=== PATIENT | female | born 1950 | race Caucasian/White ===

== ENCOUNTER 2021-05-21 14:33 | Inpatient (IN) | payer OTHER, MEDICAID ==
[~2021-05-21] VITALS: Ht 157.5 cm; Wt 73.7 kg
[2021-05-21 16:02] VITALS: BP 126/53
[2021-05-21] MEDS ORDERED: NORVASC5 MG PO (16:06)
[2021-05-21] MEDS ORDERED: ASPIRIN ADULT L81 M2 PO (16:08)
[2021-05-21] MEDS ORDERED: ATORVASTATIN CA20 M1 PO (16:10)
[2021-05-21] MEDS ORDERED: BUSPIRONE15 MG PO (16:12)
[2021-05-21] MEDS ORDERED: CELEXA20 MG PO (16:13)
[2021-05-21] MEDS ORDERED: DULCOLAX STOOL100 M1 PO (16:15)
[2021-05-21] MEDS ORDERED: HALDOL5 MG/1 ML IM (16:17)
[2021-05-21] MEDS ORDERED: LISINOPRIL2.5 MG PO (16:18)
[2021-05-21] MEDS ORDERED: NAMENDA-5 PO (16:21)
[2021-05-21] MEDS ORDERED: DAILY VALUE1 EACH PO (16:23)
[2021-05-21 18:50] LABS: BILIRUBIN Negative (Negative); BLOOD Negative (Negative); CLARITY Clear (Clear); COLOR Dark Yellow (Yellow); GLUCOSE Negative (Negative); KETONE Trace (Negative); LEUKO ESTERASE 2+ (Negative); NITRITE Negative (Negative); SPECIFIC GRAVITY 1.025 (1.001-1.030)
[2021-05-21 19:18] LABS: BACTERIA TRACE; RBC 0-2 rbc/hpf (0-2); WBC 16-20 wbc/hpf (0-5)
[2021-05-21 19:58] VITALS: BP 106/68
[2021-05-22 06:17] LABS: BASO % 0.2 % (0.0-1.0); EOS # 0.1 10*3/uL (0.0-0.4); EOS % 2.9 % (1.0-4.0); HEMATOCRIT 32.6 % (37.0-47.0); LYMPH # 1.7 10*3/uL (1.3-4.4); MEAN CELL VOLUME 94.5 fl (81.0-99.0); MEAN CORPUSCULAR HGB 30.1 pg (27.0-31.0); MEAN CORPUSCULAR HGB CONC 31.9 g/dl (33.0-37.0); MEAN PLATELET VOLUME 11.2 fl (9.6-12.3); MONO # 0.3 10*3/uL (0.1-1.0); MONO % 5.8 % (3.0-9.0); NEUT # 2.4 10*3/uL (2.3-7.9); NEUT % 53.9 % (47.0-73.0); PLATELET COUNT AUTOMATED 146 10*3/uL (130-400); RED BLOOD COUNT 3.45 10*6/uL (4.10-5.10); RED CELL DISTRI WIDTH 12.1 % (0-14.5); WHITE BLOOD COUNT 4.5 10*3/uL (4.8-10.8)
[2021-05-22 07:01] LABS: ALBUMIN 2.8 gm/dl (3.1-4.5); ALKALINE PHOSPHATASE 92 U/L (45-117); BUN 20 mg/dl (7-24); CHLORIDE 111 mmol/L (98-107); CHOLESTEROL 103 mg/dL (<200); CREATININE 1.06 mg/dL (0.55-1.02); LDL CHOLESTEROL 50 mg/dL (9-159); POTASSIUM 3.9 mmol/L (3.5-5.1); SGOT/AST 26 IU/L (3-35); SGPT/ALT 28 U/L (12-78); SODIUM 143 mmol/L (136-145); TRIGLYCERIDES 67 mg/dl (<150)
[2021-05-22 08:00] VITALS: BP 116/41
[2021-05-22 20:00] VITALS: BP 141/75
[2021-05-23 08:09] VITALS: BP 117/54
[2021-05-23 20:00] VITALS: BP 118/60
[2021-05-24 07:49] VITALS: BP 110/62
[2021-05-24 20:00] VITALS: BP 97/57
[2021-05-25 03:24] LABS: BILIRUBIN Negative (Negative); BLOOD Negative (Negative); CLARITY Cloudy (Clear); COLOR Yellow (Yellow); GLUCOSE Negative (Negative); KETONE Trace (Negative); LEUKO ESTERASE 2+ (Negative); NITRITE Negative (Negative); PH 5.5 (4.5-8.0)
[2021-05-25 03:52] LABS: BACTERIA 1+; WBC 21-30 wbc/hpf (0-5)
[2021-05-25 07:48] VITALS: BP 101/58
[2021-05-25 20:00] VITALS: BP 128/74
[2021-05-26 07:21] VITALS: BP 132/54
[2021-05-26 07:23] LABS: BASO % 0.2 % (0.0-1.0); EOS % 0.2 % (1.0-4.0); HEMATOCRIT 32.8 % (37.0-47.0); LYMPH # 0.9 10*3/uL (1.3-4.4); LYMPH % 14.4 % (27.0-41.0); MEAN CELL VOLUME 94.3 fl (81.0-99.0); MEAN CORPUSCULAR HGB 29.9 pg (27.0-31.0); MEAN CORPUSCULAR HGB CONC 31.7 g/dl (33.0-37.0); MONO # 0.3 10*3/uL (0.1-1.0); MONO % 4.8 % (3.0-9.0); NEUT # 5.2 10*3/uL (2.3-7.9); NEUT % 80.2 % (47.0-73.0); PLATELET COUNT AUTOMATED 168 10*3/uL (130-400); RED BLOOD COUNT 3.48 10*6/uL (4.10-5.10); RED CELL DISTRI WIDTH 12.2 % (0-14.5); WHITE BLOOD COUNT 6.5 10*3/uL (4.8-10.8)
[2021-05-26 07:38] LABS: ALBUMIN 2.7 gm/dl (3.1-4.5); CREATININE 1.1 mg/dL (0.55-1.02); TOTAL PROTEIN 5.9 gm/dL (6.4-8.2)
[2021-05-26 20:00] VITALS: BP 132/58
[2021-05-27 07:49] VITALS: BP 119/57
[2021-05-27] MEDS ORDERED: DIVALPROEX SOD125 M1 PO (11:35)
[2021-05-27] MEDS ORDERED: NEUDEXT PO ×2 (11:35)
[2021-05-27] MEDS ORDERED: MEMANTINE HCL10 MG PO (11:35)
[2021-05-27] MEDS ORDERED: RIVASTIGMINE1 EAC2 T (11:35)
== END 2021-05-27 13:53 | disposition short-term general hospital (02) | DRG 883 ==
LOC: 3N 14:33
PROVIDERS: Internal Medicine; Student in an Organized Health Care Education/Training Program; ADMIT Psychiatry & Neurology Psychiatry; ATTEND Psychiatry & Neurology Psychiatry
DX: F63.81 Intermittent explosive disorder (principal); E44.0 Moderate protein-calorie malnutrition; F02.81 Dementia in other diseases classified elsewhere, unspecified severity, with behavioral disturbance; N39.0 Urinary tract infection, site not specified; F32.9 Major depressive disorder, single episode, unspecified; G30.9 Alzheimer's disease, unspecified; F48.2 Pseudobulbar affect; D72.819 Decreased white blood cell count, unspecified; D64.9 Anemia, unspecified; K20.90 Esophagitis, unspecified without bleeding; R00.1 Bradycardia, unspecified; I25.10 Atherosclerotic heart disease of native coronary artery without angina pectoris; K80.20 Calculus of gallbladder without cholecystitis without obstruction; D35.00 Benign neoplasm of unspecified adrenal gland; I10 Essential (primary) hypertension; E78.5 Hyperlipidemia, unspecified; R29.6 Repeated falls; B95.7 Other staphylococcus as the cause of diseases classified elsewhere; Z90.710 Acquired absence of both cervix and uterus; Z79.899 Other long term (current) drug therapy; Z79.82 Long term (current) use of aspirin; Z68.28 Body mass index [BMI] 28.0-28.9, adult

== ENCOUNTER 2021-05-27 14:12 | Inpatient (IN) | payer OTHER, MEDICAID ==
[~2021-05-27 14:12] MED LIST: ASPIRIN ADULT L81 M2 PO; ATORVASTATIN CA20 M1 PO; BUSPIRONE15 MG PO; CELEXA20 MG PO; DAILY VALUE1 EACH PO; DIVALPROEX SOD125 M1 PO; DULCOLAX STOOL100 M1 PO; HALDOL5 MG/1 ML IM; LISINOPRIL2.5 MG PO; MEMANTINE HCL10 MG PO; NAMENDA-5 PO; NEUDEXT PO; NORVASC5 MG PO; RIVASTIGMINE1 EAC2 T
[2021-05-27 14:47] VITALS: BP 155/40
[2021-05-27 16:00] VITALS: BP 152/56
[2021-05-27 20:00] VITALS: BP 153/49
[2021-05-28] VITALS: BP 167/49
[2021-05-28 06:23] LABS: HEMATOCRIT 37.1 % (37.0-47.0); MEAN CELL VOLUME 96.6 fl (81.0-99.0); MEAN CORPUSCULAR HGB 30.2 pg (27.0-31.0); MEAN CORPUSCULAR HGB CONC 31.3 g/dl (33.0-37.0); MEAN PLATELET VOLUME 12.5 fl (9.6-12.3); PLATELET COUNT AUTOMATED 135 10*3/uL (130-400); RED BLOOD COUNT 3.84 10*6/uL (4.10-5.10); WHITE BLOOD COUNT 7.3 10*3/uL (4.8-10.8)
[2021-05-28 06:34] LABS: ACT PARTIAL THROMBO TIME 21.9 SECONDS (20.0-32.1)
[2021-05-28 06:36] LABS: ALKALINE PHOSPHATASE 110 U/L (45-117); BUN 21 mg/dl (7-24); CHLORIDE 105 mmol/L (98-107); CREATININE 1.05 mg/dL (0.55-1.02); SGOT/AST 37 IU/L (3-35); SODIUM 140 mmol/L (136-145)
[2021-05-28 06:43] LABS: SGPT/ALT 32 U/L (12-78)
[2021-05-28 07:48] LABS: PLATELET SUFFICIENCY NORMAL (NORMAL); TOTAL CELLS COUNTED 100 #CELLS
[2021-05-28 08:00] VITALS: BP 123/41
[2021-05-28 12:00] VITALS: BP 127/84; BP 149/48
[2021-05-28 16:00] VITALS: BP 123/43
[2021-05-28 20:00] VITALS: BP 140/43
[2021-05-29] VITALS: BP 154/37
[2021-05-29 08:00] VITALS: BP 160/49
[2021-05-29] MEDS ORDERED: SEPTDS PO (13:02)
== END 2021-05-29 15:00 | DRG 690 ==
LOC: 5E 14:12 → 4E 14:12 → 5E 18:03
PROVIDERS: Social Worker Clinical; ADMIT Family Medicine; ATTEND Family Medicine
DX: N39.0 Urinary tract infection, site not specified (principal); E44.0 Moderate protein-calorie malnutrition; F63.81 Intermittent explosive disorder; F32.9 Major depressive disorder, single episode, unspecified; D64.9 Anemia, unspecified; I10 Essential (primary) hypertension; E78.2 Mixed hyperlipidemia; F48.2 Pseudobulbar affect; R29.6 Repeated falls; F22 Delusional disorders; B95.8 Unspecified staphylococcus as the cause of diseases classified elsewhere; K80.20 Calculus of gallbladder without cholecystitis without obstruction; G30.9 Alzheimer's disease, unspecified; F02.80 Dementia in other diseases classified elsewhere, unspecified severity, without behavioral disturbance, psychotic disturbance, mood disturbance, and anxiety; Z90.710 Acquired absence of both cervix and uterus; Z79.82 Long term (current) use of aspirin; Z79.899 Other long term (current) drug therapy

== ENCOUNTER 2021-05-29 14:13 | Inpatient (IN) | payer OTHER, MEDICAID ==
[~2021-05-29] VITALS: Ht 157.4 cm; Wt 71.7 kg
[~2021-05-29 14:13] MED LIST changes: +SEPTDS PO
[2021-05-29 15:18] VITALS: BP 108/62
[2021-05-29 19:36] VITALS: BP 108/62
[2021-05-30 06:40] LABS: BASO % 0.3 % (0.0-1.0); EOS # 0.1 10*3/uL (0.0-0.4); EOS % 1.9 % (1.0-4.0); HEMATOCRIT 32.2 % (37.0-47.0); LYMPH # 1.5 10*3/uL (1.3-4.4); LYMPH % 39.1 % (27.0-41.0); MEAN CELL VOLUME 94.7 fl (81.0-99.0); MEAN CORPUSCULAR HGB 30.3 pg (27.0-31.0); MEAN PLATELET VOLUME 11.3 fl (9.6-12.3); MONO # 0.3 10*3/uL (0.1-1.0); MONO % 8.6 % (3.0-9.0); NEUT # 1.8 10*3/uL (2.3-7.9); NEUT % 49.6 % (47.0-73.0); PLATELET COUNT AUTOMATED 161 10*3/uL (130-400); RED CELL DISTRI WIDTH 11.7 % (0-14.5); WHITE BLOOD COUNT 3.7 10*3/uL (4.8-10.8)
[2021-05-30 06:49] LABS: ALBUMIN 2.4 gm/dl (3.1-4.5); ALKALINE PHOSPHATASE 90 U/L (45-117); BUN 13 mg/dl (7-24); CHLORIDE 109 mmol/L (98-107); CHOLESTEROL 99 mg/dL (<200); CREATININE 0.84 mg/dL (0.55-1.02); LDL CHOLESTEROL 54 mg/dL (9-159); POTASSIUM 3.6 mmol/L (3.5-5.1); SGOT/AST 20 IU/L (3-35); SGPT/ALT 25 U/L (12-78); SODIUM 142 mmol/L (136-145); TOTAL PROTEIN 5.3 gm/dL (6.4-8.2); TRIGLYCERIDES 95 mg/dl (<150)
[2021-05-30 07:25] VITALS: BP 112/86
[2021-05-30 20:00] VITALS: BP 128/56
[2021-05-31 06:23] LABS: BUN 15 mg/dl (7-24); CHLORIDE 108 mmol/L (98-107); CREATININE 1.01 mg/dL (0.55-1.02); POTASSIUM 3.8 mmol/L (3.5-5.1); SODIUM 143 mmol/L (136-145)
[2021-05-31 06:25] LABS: BASO % 0.2 % (0.0-1.0); EOS % 0.9 % (1.0-4.0); HEMATOCRIT 33.3 % (37.0-47.0); LYMPH # 0.7 10*3/uL (1.3-4.4); LYMPH % 15.4 % (27.0-41.0); MEAN CELL VOLUME 93.3 fl (81.0-99.0); MEAN CORPUSCULAR HGB 29.4 pg (27.0-31.0); MEAN CORPUSCULAR HGB CONC 31.5 g/dl (33.0-37.0); MEAN PLATELET VOLUME 11.3 fl (9.6-12.3); MONO # 0.3 10*3/uL (0.1-1.0); MONO % 7.1 % (3.0-9.0); NEUT # 3.3 10*3/uL (2.3-7.9); NEUT % 75.9 % (47.0-73.0); PLATELET COUNT AUTOMATED 186 10*3/uL (130-400); RED BLOOD COUNT 3.57 10*6/uL (4.10-5.10); RED CELL DISTRI WIDTH 11.8 % (0-14.5); WHITE BLOOD COUNT 4.4 10*3/uL (4.8-10.8)
[2021-05-31 07:27] VITALS: BP 124/61
[2021-05-31 11:30] LABS: LIPASE 155 U/L (73-393)
[2021-05-31 20:00] VITALS: BP 110/55
[2021-06-01 06:47] LABS: BASO % 0.3 % (0.0-1.0); EOS # 0.2 10*3/uL (0.0-0.4); HEMATOCRIT 33.3 % (37.0-47.0); LYMPH # 0.4 10*3/uL (1.3-4.4); LYMPH % 9.7 % (27.0-41.0); MEAN CELL VOLUME 95.7 fl (81.0-99.0); MEAN CORPUSCULAR HGB 29.9 pg (27.0-31.0); MEAN CORPUSCULAR HGB CONC 31.2 g/dl (33.0-37.0); MEAN PLATELET VOLUME 11.2 fl (9.6-12.3); MONO # 0.3 10*3/uL (0.1-1.0); MONO % 8.6 % (3.0-9.0); NEUT # 2.8 10*3/uL (2.3-7.9); NEUT % 76.1 % (47.0-73.0); PLATELET COUNT AUTOMATED 144 10*3/uL (130-400); RED BLOOD COUNT 3.48 10*6/uL (4.10-5.10); RED CELL DISTRI WIDTH 12.1 % (0-14.5); WHITE BLOOD COUNT 3.6 10*3/uL (4.8-10.8)
[2021-06-01 06:58] LABS: CREATININE 1.12 mg/dL (0.55-1.02); POTASSIUM 3.7 mmol/L (3.5-5.1)
[2021-06-01 07:20] VITALS: BP 120/58
[2021-06-01 19:09] VITALS: BP 119/46
[2021-06-02 07:09] LABS: CREATININE 1.31 mg/dL (0.55-1.02); POTASSIUM 3.9 mmol/L (3.5-5.1)
[2021-06-02 07:52] VITALS: BP 121/67
[2021-06-02 20:41] VITALS: BP 128/58
[2021-06-03 07:31] VITALS: BP 120/76
[2021-06-03 20:00] VITALS: BP 101/63
[2021-06-03 20:10] VITALS: BP 118/56
[2021-06-04 08:00] VITALS: BP 126/60
[2021-06-04 20:00] VITALS: BP 120/56
[2021-06-05 07:36] VITALS: BP 160/61
[2021-06-05 20:00] VITALS: BP 140/62
[2021-06-06 08:16] VITALS: BP 112/58
[2021-06-06 20:00] VITALS: BP 110/56
[2021-06-07 08:14] VITALS: BP 104/54
[2021-06-07] MEDS ORDERED: DIVALPROEX SOD125 M1 PO (09:35)
[2021-06-07] MEDS ORDERED: MEMANTINE HCL10 MG PO (09:35)
[2021-06-07] MEDS ORDERED: RISPERIDONE0.25 M2 PO (09:35)
[2021-06-07] MEDS ORDERED: NEUDEXT PO (09:35)
[2021-06-07] MEDS ORDERED: RIVASTIGMINE1 EAC2 T (09:35)
== END 2021-06-07 11:55 | DRG 883 ==
LOC: 3N 14:13
PROVIDERS: Registered Nurse; ADMIT Psychiatry & Neurology Psychiatry; ATTEND Psychiatry & Neurology Psychiatry
DX: F63.81 Intermittent explosive disorder (principal); N17.0 Acute kidney failure with tubular necrosis; N39.0 Urinary tract infection, site not specified; F33.9 Major depressive disorder, recurrent, unspecified; E44.0 Moderate protein-calorie malnutrition; G30.9 Alzheimer's disease, unspecified; F02.80 Dementia in other diseases classified elsewhere, unspecified severity, without behavioral disturbance, psychotic disturbance, mood disturbance, and anxiety; F48.2 Pseudobulbar affect; I10 Essential (primary) hypertension; E78.5 Hyperlipidemia, unspecified; F22 Delusional disorders; Z90.710 Acquired absence of both cervix and uterus; Z98.49 Cataract extraction status, unspecified eye; Z68.28 Body mass index [BMI] 28.0-28.9, adult